=== PATIENT | female | born 1970 | race Caucasian/White ===

== ENCOUNTER 2024-12-04 11:21 | Emergency (ER) | payer SELFPAY ==
[2024-12-04 11:23] VITALS: BP 146/89; PULSE 63; RESP 17; TEMP 36.8; O2SAT 99
--- NOTE | 2024-12-04 11:24 | ECG_ITS ---
[facility] Pat Name: Becki Arreola Department: Room: Gender: Female Assistant Principal: : 1970 Requested By: Efren Crawley Order Number: [id number] Reading MD: Measurements Intervals [place] Rate: 65 P: 57 NE: 133 QRS: 33 QRSD: 90 T: 60 QT: 402 QTc: 418 Interpretive Statements SINUS RHYTHM MODERATE T-WAVE ABNORMALITY, CONSIDER ANTEROLATERAL ISCHEMIA [-0.1+ mV T-WAVE IN V3-V6] No previous ECG available for comparison [email or web address]
--- NOTE | 2024-12-04 11:32 | ED_ITS ---
HPI - Neuro Symptoms/Deficit 2 General: Chief Complaint: Neuro Symptoms/Deficit Stated Complaint: generalized weakness Time Seen by Provider: 12/04/24 11:22 History of Present Illness: 54-year-old female presents emergency ro om complaining of generalized weakness. She reports that she intermittently has some right arm numbness and tingling began around 430 this morning lasted for half hour it resolved and she had another episode at around 930 in the third episode at around 10 all of these resolved the last 1 is the shortest lot lasting. She was treated for tickborne illness starting a week ago she is complaining of a headache that is actually worsened some. Currently is on Zithromax and a methylprednisolone taper pack that started on November 22. Associated symptoms: Deny chest pain Related Data Previous Rx's ?Medication ?Instructions ?Recorded promethazine 25 mg tablet 25 mg PO Q6H PRN nausea and 12/04/24 vomiting #20 tabs Allergies Allergy/AdvReac Type Severity Reaction Status Date / Time No Known Allergies Allergy Verified 12/04/24 11:32 Review of Systems 2 Const: Denies: fever(s) or chills Card: Denies: chest pain Resp: Denies: dyspnea GI: Denies: abdominal pain : Denies: dysuria, urinary frequency or urinary urgency Musc: Denies: neck pain or back pain Skin/Breast: Denies: rash NIH stroke score 2 NIHSS: Level Of Consciousness - 1a: 0 Level Of Consciousness Questions - 1b: Both Correct Level Of Consciousness Commands - 1c: Both Correct Best Gaze - 2: Normal Visual Pham - 3: No Visual Loss Facial Palsy - 4: N ormal Motor Arm Right - 5: No Drift Motor Arm Left - 5: No Drift Motor Leg Right - 6: No Drift Motor Leg Left - 6: No Drift Limb Ataxia - 7: A bsent Sensory - 8: Normal Best Language - 9: No Aphasia Dysarthia - 10: Normal Extinction And Inattention - 11: 0 Score: Total Score: 0 Physical Exam 2 Const: GENERAL APPEARANCE: cooperative ORIENTATION/CONSCIOUSNESS: Yes awake, Yes oriented to person, Yes oriented to place and Yes oriented to time HENMT: COMMON NORMALS: normocephalic, atraumatic and hearing grossly normal bilaterally HEAD & SCALP: normocephalic and atraumatic Resp: COMMON NORMALS: normal respiratory effort, No retractions, No use of accessory muscles and clear to auscultation bilaterally AUSCULTATION: clear to auscultation bilaterally Cardio: COMMON NORMALS: regular rate, regular rhythm and No murmurs present (Cardio) RATE: regular rate RHYTHM: regular rhythm GI: COMMON NORMALS: Soft to palpation and No hepatosplenomegaly present A USCULTATION: Yes normoactive bowel sounds PALPATION: Yes Soft to palpation, No Tenderness to palpation present (GI), No Guarding due to palpation present (GI) and Yes No hepatosplenomegaly present Extremity: COMMON NORMALS: normal to inspection, capillary refill normal, no clubbing, cyanosis or edema, no calf tenderness and no pedal edema Neuro: SENSORIUM/ORIENTATION: Yes oriented to person, Yes oriented to place and Yes oriented to time Skin: COMMON NORMALS: no rashes or lesions noted GENERAL SKIN EXAM: no rashes or lesions noted Course 2 Vital Signs: Vital signs: Vital Signs Temperature 98.2 F 12/04/24 11:23 Pulse Rate 81 12/04/24 15:16 Respiratory Rate 17 12/04/24 11:23 Blood Pressure 134/72 12/04/24 15:16 Pulse Oximetry 98 12/04/24 15:16 Oxygen Delivery Me thod Room Air 12/04/24 15:16 MDM - Neuro Symptoms/Deficit Medical Decision Making NIH was 0 both on initial exam and repeat exam. Her symptoms are more associated with headache and resolved with resolution of her headache. She is completing a treatment and [place] all of her symptoms are resolved her headache is improved significantly on repeat exam she remains without any lateralizing neurologic signs. Will discharge patient home will give promethazine to use along with Benadryl and/or ibuprofen as needed for headache. She does have doxycycline which she was prescribed for the tickborne illness advised her to complete that follow-up with her primary care doctor Medical Records I reviewed the patient's medical records. Lab Data I reviewed the patient's lab results. 12/04/24 12:09 12/04/24 12:[address] 12/04/24 11:39 IMPRESSION: 1. No evidence of intracranial hemorrhage or mass effect. 2. No acute intracranial findings. Notified Efren Alarcon DO at 12/04/2024 11:47 AM. Laboratory Results WBC 8.36 10^3/uL (3.29-11.43) 12/04/24 12:09 RBC 4.24 10^6/uL (3.85-5.65) 12/04/24 12:09 Hgb 12.10 g/dL (11.27-16.99) 12/04/24 12:09 Hct 37.5 % (36-47) 12/04/24 12:09 MCV 88.4 fl (85-98) 12/04/24 12:09 MCH 28.5 pg (27-33) 12/04/24 12:09 MCHC 32.3 g/dL (30-55) 12/04/24 12:09 RDW 14.7 % (12.1-15.1) 12/04/24 12:09 Plt Count 447 10^3/cmm (157-399) H 12/04/24 12:09 MPV 8.8 fL (7.4-10.4) 12/04/24 12:09 Neut % (Auto) 47.1 % 12/04/24 12:09 Lymph % (Auto) 44.0 % 12/04/24 12:09 Branch % (Auto) 6.7 % 12/04/24 12:09 Eos % (Auto) 1.0 % 12/04/24 12:09 Baso % (Auto) 0.7 % 12/04/24 12:09 Neut # (Auto) 3.94 10^3/uL (1.8-7.7) 12/04/24 12:09 Lymph # (Auto) 3.7 10^3/uL (0.8-4.8) 12/04/24 12:09 Branch # (Auto) 0.6 10^3/uL (0.2-0.9) 12/04/24 12:09 Eos # (Auto) 0.1 10^3/uL (0.0-0.8) 12/04/24 12:09 Baso # (Auto) 0.1 10^3/uL (0.0-0.1) 12/04/24 12:09 Nucleated RBC % (auto) 0 % 12/04/24 12:09 Nucleated RBCs # 0.0 /100WBC 12/04/24 12:09 PT 13.10 SECONDS (12.1-14.9) 12/04/24 12:09 INR 0.93 (0.8-1.2) 12/04/24 12:09 APTT 27.8 SECONDS (23.9-36.7) 12/04/24 12:09 Sodium 136 mmol/L (136-145) 12/04/24 12:09 Potassium 4.5 mmol/L (3.5-5.1) 12/04/24 12:09 Chloride 95 mmol/L (98-107) L 12/04/24 12:09 Carbon Dioxide 30 mmol/L (22-29) H 12/04/24 12:09 Anion Gap 15.5 (5-19) 12/04/24 12:09 BUN 12 mg/dL (6-20) 12/04/24 12:09 Creatinine 0.5 mg/dL (0.5-0.9) 12/04/24 12:09 GFR Calculation 129.6 mL/min (90-130) 12/04/24 12:09 Glucose 114 mg/dL (65-115) 12/04/24 12:09 POC Glucose 103 mg/dL (70-110) 12/04/24 11:29 Calculated Osmolality 283 mOsm/kg (285-295) L 12/04/24 12:09 Calcium 9.4 mg/dL (8.5-10.5) 12/04/24 12:09 Total Bilirubin 0.6 mg/dL (0.15-1.2) 12/04/24 12:09 AST 43 U/L (0-32) H 12/04/24 12:09 ALT 109 U/L (0-33) H 12/04/24 12:09 Alkaline Phosphatase 304 U/L (35-105) H 12/04/24 12:09 Total Protein 7.3 g/dL (6.6-8.7) 12/04/24 12:09 Albumin 3.6 g/dL (3.5-5.2) 12/04/24 12:09 Globulin 3.7 g/dL (1.3-4.6) 12/04/24 12:09 Urine Color Yellow (Yellow) 12/04/24 11:55 Urine Appearance Cloudy (CLEAR) A 12/04/24 11:55 Urine pH 7.5 (5-7) 12/04/24 11:55 Ur Specific [place] 1.016 (1.005-1.030) 12/04/24 11:55 Urine Protein Negative (Negative) 12/04/24 11:55 Urine Glucose (UA) Negative (Normal) 12/04/24 11:55 Urine Ketones Negative (Negative) 12/04/24 11:55 Urine Blood Negative (Negative) 12/04/24 11:55 Urine Nitrate Negative (Negative) 12/04/24 11:55 Urine Bilirubin Negative (Negative) 12/04/24 11:55 Urine Urobilinogen 0.2 mg/dL (Negative) 12/04/24 11:55 Ur Leukocyte Esterase Negative (Negative) 12/04/24 11:55 Urine RBC 0-2 /hpf (0-2) 12/04/24 11:55 Urine WBC 0-5 /hpf (0-5) 12/04/24 11:55 Ur Squamous Epith Cells 0-5 /hpf (0-5) 12/04/24 11:55 Amorphous Sediment 2+ /hpf 12/04/24 11:55 Urine Bacteria None seen /hpf (NONE) 12/04/24 11:55 Hyaline Casts 0.40 /lpf 12/04/24 11:55 Urine Opiates Screen Positive ng/mL (Negative) H 12/04/24 11:55 Ur Barbiturates Screen Negative ng/mL (Negative) 12/04/24 11:55 Ur Phencyclidine Scrn Negative ng/mL (Negative) 12/04/24 11:55 Ur Amphetamines Screen Positive ng/mL (Negative) H 12/04/24 11:55 U Benzodiazepines Scrn Negative ng/mL (Negative) 12/04/24 11:55 Urine Cocaine Screen Negative ng/mL (Negative) 12/04/24 11:55 U Marijuana (THC) Screen Negative ng/mL (Negative) 12/04/24 11:55 All radiology interpretation(s) finalized by discharge Discharge Plan Discharge Patient Disposition: Home Clinical Impression: Migraine with aura Condition: Stable Prescriptions: New promethazine 25 mg tablet 25 mg PO Q6H PRN (Reason: nausea and vomiting) Qty: 20 0RF Discharge Orders: Discharge ED (Routine); Ordered 12/04/24 Ordered By: Efren Alarcon Discharge Diet: Usual diet Discharge Activity: Increase activity as tolerated Patient Instructions: Opioid Safety, Pain Management, Patient Portal & [place] Instructions Activity Restrictions/Additional Instructions: Thank you for choosing [facility] for your healthcare needs today. It is very important that you follow up as instructed or that you return to the Emergency Department should you have concerns or if your condition changes or worsens in any way. You are seen today with headache and intermittent right sided arm pain. CT of your head was negative based on your exam findings and history suspect this is more of migraine with aura. Medicines we gave you in the emergency room relieved her symptoms recommend that you complete the course of doxycycline you are given for the tickborne illness you can use promethazine along with Benadryl Tylenol or ibuprofen if you have recurrent headaches if symptoms worsen significantly return. Print Language: Scottish Coding Level of Care Code ED Research Kennel Supervisor for Heron Sepulveda
--- NOTE | 2024-12-04 11:39 | CT_ITS ---
WS: [id number] CT HEAD TECHNIQUE: Noncontrast CT of the head obtained from the skullbase to the vertex. CLINICAL INFORMATION: ACUTE STMPYOMS OF STROKE COMPARISON: 2010 DLP: [address] scans at [facility] use at least one of these dose optimization techniques: automated exposure control; mA and/or kV adjustment per patient size (includes targeted exams where dose is matched to clinical indication); or iterative reconstruction. FINDINGS: No evidence of intracranial hemorrhage or mass effect. Ventricular system and basal cisterns are patent. No extra-axial fluid collections. No evidence of mass or mass effect. Normal pryor-white differentiation. Mild vascular calcification. Mild mucosal thickening in the ethmoid air cells. Mastoid air cells are well aerated. CT/CT head thrombolytic 22553 IMPRESSION: 1. No evidence of intracranial hemorrhage or mass effect. 2. No acute intracranial findings. Notified Efren Alarcon DO at 12/04/2024 11:47 AM.
[2024-12-04 12:23] LABS: Hematocrit 37.5 % (36-47); Hemoglobin 12.10 g/dL (11.27-16.99); Mean Corpuscular HGB Conc 32.3 g/dL (30-55); Mean Corpuscular Hemoglobin 28.5 pg (27-33); Mean Corpuscular Volume 88.4 fl (85-98); Nucleated Red Blood Cells % 0 %; Platelet Count 447 10^3/cmm (157-399); Red Blood Count 4.24 10^6/uL (3.85-5.65); White Blood Count 8.36 10^3/uL (3.29-11.43)
[2024-12-04 12:31] LABS: Glucose Urine UA Negative (Normal); Nitrate Urine Negative (Negative); Specific Gravity, Urine 1.016 (1.005-1.030)
[2024-12-04 12:34] LABS: PCP Screen Urine Negative (Negative)
[2024-12-04 12:36] LABS: Add Urine Microscopic? YES
[2024-12-04 12:38] LABS: INR 0.93 (0.8-1.2); Prothrombin Time 13.10 SECONDS (12.1-14.9)
[2024-12-04 12:39] LABS: Partial Thromboplastin Time 27.8 SECONDS (23.9-36.7)
[2024-12-04 12:44] LABS: Alanine Aminotransferase 109 U/L (0-33); Albumin Level 3.6 g/dL (3.5-5.2); Alkaline Phosphatase 304 U/L (35-105); Anion Gap 15.5 (5-19); Aspartate Amino Transferase 43 U/L (0-32); Blood Urea Nitrogen 12 mg/dL (6-20); Calcium 9.4 mg/dL (8.5-10.5); Carbon Dioxide 30 mmol/L (22-29); Chloride 95 mmol/L (98-107); Globulin 3.7 g/dL (1.3-4.6); Glucose 114 mg/dL (65-115); Osmolality Calculated 283 mOsm/kg (285-295); Potassium 4.5 mmol/L (3.5-5.1); Sodium 136 mmol/L (136-145); Total Protein 7.3 g/dL (6.6-8.7)
--- NOTE | 2024-12-04 12:47 | PC.NURSE ---
PT COMPLAINING OF HEADACHE. DR. LUIS NOTIFIED, VERBAL ORDER GIVEN FOR MEDICATION.
[2024-12-04 12:48] VITALS: BP 135/90; PULSE 71; O2SAT 96
[2024-12-04] MEDS: diphenhydrAMINE 50 mg/mL SDV 1mL 25 MG IVP ×2 (12:57→14:00)
[2024-12-04 13:16] LABS: UA Slide Review UA Slide Review Perf
[2024-12-04 14:03] VITALS: BP 117/84; PULSE 73; O2SAT 97
[2024-12-04 15:16] VITALS: BP 134/72; PULSE 81; O2SAT 98
[2024-12-04 15:46] VITALS: BP 134/72; PULSE 80; O2SAT 99
== END 2024-12-04 15:50 | disposition home or self-care (01) ==
PROVIDERS: Emergency Provider Family Medicine
DX: G43.109 Migraine with aura, not intractable, without status migrainosus (principal)
CPT/HCPCS: 36415; 36416; 70450; 80053; 80306; 81001; 82962; 85025; 85610; 85730; 93005; 93010; 96365; 96375; 96376; 99285; J1110; J1200; J1885; J3490